=== PATIENT | female | born 1955 | race Asian ===

== ENCOUNTER → 2018-05-29 | Outpatient (CLI) | payer OTHER | LOC: FIMAGING 09:53 | PROVIDERS: ATTEND Family Medicine | DX: Z12.31 Encounter for screening mammogram for malignant neoplasm of breast (principal) ==

== ENCOUNTER → 2018-06-25 | Outpatient (CLI) | payer OTHER | LOC: FIMAGING 09:53 | PROVIDERS: ATTEND Internal Medicine Rheumatology | DX: Z13.820 Encounter for screening for osteoporosis (principal); M81.0 Age-related osteoporosis without current pathological fracture ==

== ENCOUNTER → 2018-12-17 | Outpatient (CLI) | payer OTHER | LOC: BMCIMAGING 07:12 | PROVIDERS: ATTEND Internal Medicine | DX: K74.3 Primary biliary cirrhosis (principal); N28.1 Cyst of kidney, acquired ==

== ENCOUNTER → 2019-03-04 | Outpatient (CLI) | payer OTHER | LOC: BHFA 10:00 ==